=== PATIENT | female | born 1955 | race Two or more races ===

== ENCOUNTER 2018-06-29 13:52 | Emergency (ER) | payer BC, OTHER ==
[~2018-06-29] VITALS: Ht 157.5 cm; Wt 90.7 kg
[2018-06-29 15:22] VITALS: BP 178/100
== END 2018-06-29 17:36 | disposition home or self-care (01) ==
LOC: ER 14:03
DX: S13.4XXA Sprain of ligaments of cervical spine, initial encounter (principal); V49.9XXA Car occupant (driver) (passenger) injured in unspecified traffic accident, initial encounter; Y93.89 Activity, other specified; Y92.488 Other paved roadways as the place of occurrence of the external cause; Y99.8 Other external cause status
CPT/HCPCS: 71046; 72040

== ENCOUNTER 2024-05-12 19:24 | Emergency (ER) | payer MEDICARE, MEDICAID ==
[~2024-05-12] VITALS: Ht 180.3 cm; Wt 88.7 kg
[2024-05-12 19:40] VITALS: BP 149/73; PULSE 82; RESP 20; TEMP 98.2; O2SAT 96
[2024-05-12 20:50] LABS: COVID19 ANTIGEN SOFIA FIA NEGATIVE (NEGATIVE)
[2024-05-12 20:52] LABS: Rapid Influenza A Negative (Negative); Rapid Influenza B Negative (Negative)
[2024-05-12] MEDS ORDERED: ALBUAER3 IN (22:47)
[2024-05-12] MEDS ORDERED: METH4PAK PO (22:47)
[2024-05-12] MEDS ORDERED: AZIT-185 PO (22:47)
== END 2024-05-12 23:10 | disposition home or self-care (01) ==
LOC: ER 19:24
DX: J22 Unspecified acute lower respiratory infection (principal); Z20.822 Contact with and (suspected) exposure to COVID-19
CPT/HCPCS: 36415; 87426; 87804